=== PATIENT | female | born 1980 | race Caucasian/White ===

== ENCOUNTER 2021-10-23 17:19 | Inpatient (IN) | payer MEDICAID, OTHER ==
[~2021-10-23] VITALS: Ht 162.6 cm; Wt 106.4 kg
[2021-10-23] MEDS ORDERED: FLUO20SO2 PO (17:45)
[2021-10-23] MEDS ORDERED: BUSP10TA23 PO (17:45)
[2021-10-23] MEDS ORDERED: ARIP5TAB37 PO (17:45)
[2021-10-23] MEDS: INFLUENZA VIRUS VACCINE QVS 2021-22 (6MO+)/PF 60 MCG/0.5 ML SYRINGE IM. ONE (18:00)
[2021-10-23] MEDS ORDERED: LORazepam 2 MG TABLET PO PRN (18:15)
[2021-10-23] MEDS ORDERED: HALOPERIDOL 5 MG TABLET PO PRN (18:15)
[2021-10-23 18:21] LABS: GLUCOMETER DEV NAME(LOC) POC.BV
[2021-10-23 18:45] VITALS: BP 125/78
[2021-10-24 01:16] VITALS: BP 131/73
[2021-10-24 07:13] LABS: BASOPHILS % (AUTO) 0.7 % (0.0-2.0); EOSINOPHILS % (AUTO) 3.6 % (1.0-6.0); HEMOGLOBIN 13.1 g/dL (12.0-16.0); LYMPHOCYTES # (AUTO) 2.9 K/uL (1.0-4.8); LYMPHOCYTES % (AUTO) 40.6 % (22.0-44.0); MEAN CORPUSCULAR HEMOGLOBIN 27.4 pg (26.0-34.0); MEAN CORPUSCULAR HGB CONC 33.5 G/dL (31.0-37.0); MEAN CORPUSCULAR VOLUME 82 fL (80-100); MONOCYTES # (AUTO) 0.5 K/uL (0.1-1.0); NEUTROPHILS # (AUTO) 3.4 K/uL (1.8-7.7); NEUTROPHILS % (AUTO) 48.1 % (40.0-70.0); PLATELET COUNT (AUTO) 325 K/uL (150-450); RED BLOOD CELL COUNT(AUTO) 4.76 MIL/uL (4.00-5.20); RED CELL DISTRIBUTION WIDTH 13.6 % (11.5-14.5)
[2021-10-24 07:32] LABS: HEMOGLOBIN A1C 5.4 % (3.8-5.6)
[2021-10-24 07:35] LABS: ALANINE AMINOTRANSFERASE 61 U/L (12-78); ALBUMIN 3.5 g/dL (3.4-5.0); ALKALINE PHOSPHATASE 48 U/L (46-116); ANION GAP 7 mmol/L (8-16); ASPARTATE AMINOTRANSFERASE 32 U/L (15-37); BILIRUBIN,TOTAL 0.5 mg/dL (0.1-1.0); CALCIUM, TOTAL 8.5 mg/dL (8.8-10.5); CARBON DIOXIDE 28 mmol/L (22-29); CHLORIDE 104 mmol/L (98-107); CHOL/HDL RATIO 3.8 (3.9-5.7); CHOLESTEROL 134 mg/dL (131-200); CREATININE 0.73 mg/dL (0.60-1.30); FREE T4 (FREE THYROXINE) 0.98 ng/dL (0.76-1.46); GLOMERULAR FILTR. RATE CALC > 60 mL/min (>60); GLUCOSE,RANDOM 98 mg/dL (70-110); HCG,QUANTITATIVE < 1 mIU/mL (0-6); HDL CHOLESTEROL 35 mg/dL (40-60); LDL CHOL (CALC.) 85 mg/dL (0-130); POTASSIUM 3.7 mmol/L (3.5-5.1); SODIUM SERUM 139 mmol/L (136-145); THYROID STIMULATING HORMONE 0.49 uIU/mL (0.36-3.74); TOTAL PROTEIN, SERUM 7.5 g/dL (6.4-8.2); TRIGLYCERIDES 69 mg/dL (15-150); UREA NITROGEN, BLOOD 14 mg/dL (7-18)
[2021-10-24 08:16] VITALS: BP 137/74
[2021-10-24] MEDS ORDERED: FLUoxetine HCL 20 MG/5 ML SOLUTION UDCUP PO SCH (09:00)
[2021-10-24] MEDS: ARIPiprazole 5 MG TABLET PO SCH (09:34)
[2021-10-24] MEDS: BusPIRone HCL 10 MG TABLET PO SCH ×3 (09:34→16:23)
[2021-10-24] MEDS: FLUoxetine HCL 20 MG CAPSULE PO SCH (10:25)
[2021-10-24 16:42] VITALS: BP 119/76
[2021-10-24] MEDS: INFLUENZA VIRUS VACCINE QVS 2021-22 (6MO+)/PF 60 MCG/0.5 ML SYRINGE IM. ONE (17:58)
[2021-10-24] MEDS ORDERED: ALBUTEROL SULFATE HFA 90 MCG/PUFF 8 GM INHALER IH PRN (20:15)
[2021-10-24] MEDS ORDERED: BENZOCAINE/MENTHOL LOZENGE PO PRN (20:15)
[2021-10-24] MEDS ORDERED: PETROLATUM,WHITE 28 GM JELLY TP PRN (20:15)
[2021-10-24] MEDS ORDERED: ONDANSETRON HCL 4 MG TABLET PO PRN (20:15)
[2021-10-24] MEDS ORDERED: OMEPRAZOLE 20 MG CAPSULE PO PRN (20:15)
[2021-10-24] MEDS ORDERED: MAGNESIUM HYDROXIDE SUSPENSION 30 ML UDCUP PO PRN (20:15)
[2021-10-24] MEDS ORDERED: MAG HYDROX/AL HYDROX/SIMETH ES 30 ML SUSPENSION UDCUP PO PRN (20:15)
[2021-10-24] MEDS ORDERED: BACITRACIN 28 GM OINTMENT TP PRN (20:15)
[2021-10-24] MEDS ORDERED: DOCUSATE SODIUM 100 MG CAPSULE PO PRN (20:15)
[2021-10-24] MEDS ORDERED: LOPERAMIDE HCL 2 MG CAPSULE PO PRN (20:15)
[2021-10-24] MEDS ORDERED: ACETAMINOPHEN 325 MG TABLET PO PRN (20:15)
[2021-10-24] MEDS ORDERED: CloNIDine HCL 0.1 MG TABLET PO PRN (20:15)
[2021-10-24] MEDS: ZOLPIDEM TARTRATE 10 MG TABLET PO PRN (22:12)
[2021-10-24] MEDS: IBUPROFEN 600 MG TABLET PO PRN (22:12)
[2021-10-25 01:12] VITALS: BP 121/70
[2021-10-25] MEDS: ARIPiprazole 5 MG TABLET PO SCH (08:28)
[2021-10-25] MEDS: BusPIRone HCL 10 MG TABLET PO SCH ×3 (08:28→16:16)
[2021-10-25] MEDS: FLUoxetine HCL 20 MG CAPSULE PO SCH (08:28)
[2021-10-25 08:29] VITALS: BP 124/81
[2021-10-25 16:22] VITALS: BP 124/83
[2021-10-25 21:10] VITALS: BP 131/70
[2021-10-25 21:57] VITALS: BP 140/77
[2021-10-25] MEDS: IBUPROFEN 600 MG TABLET PO PRN (21:57)
[2021-10-25] MEDS: ZOLPIDEM TARTRATE 10 MG TABLET PO PRN (21:57)
[2021-10-26 00:41] VITALS: BP 140/77
[2021-10-26 07:01] LABS: APPEARANCE,URINE CLEAR (CLEAR); BILIRUBIN,URINE NEGATIVE (NEGATIVE); GLUCOSE, URINE (UA) NEGATIVE (NEGATIVE); KETONES,URINE NEGATIVE (NEGATIVE); LEUKOCYTE ESTERASE ,URINE NEGATIVE (NEGATIVE); NITRATE,URINE NEGATIVE (NEGATIVE); PROTEIN,URINE NEGATIVE (NEGATIVE); SPECIFIC GRAVITIY, URINE 1.011 (1.003-1.030); UROBILINOGEN,URINE <=1.0 mg/dL (<=1.0)
[2021-10-26 07:09] LABS: AMPHET/METH SCREEN,URINE NEGATIVE (NEGATIVE); BARBITURATE SCREEN, URINE NEGATIVE (NEGATIVE); BENZODIAZEPINES SCREEN,URINE NEGATIVE (NEGATIVE); CANNABINOID SCREEN,URINE NEGATIVE (NEGATIVE); COCAINE SCREEN,URINE NEGATIVE (NEGATIVE); METHADONE SCREEN, URINE NEGATIVE (NEGATIVE); OPIATE SCREEN,URINE NEGATIVE (NEGATIVE)
[2021-10-26 07:16] LABS: OCCULT BLOOD,URINE SMALL (NEGATIVE)
[2021-10-26 07:17] LABS: BACTERIA,URINE Few /HPF (None Seen); SQUAMOUS EPITHELIAL CELL,UR Few /LPF (None Seen); WBC,URINE None Seen /HPF (0-5)
[2021-10-26 07:18] LABS: PHENCYCLIDINE SCREEN,URINE NEGATIVE (NEGATIVE)
[2021-10-26 08:28] VITALS: BP 123/72
[2021-10-26] MEDS: BusPIRone HCL 10 MG TABLET PO SCH ×2 (08:32→12:14)
[2021-10-26] MEDS: ARIPiprazole 5 MG TABLET PO SCH (08:32)
[2021-10-26] MEDS: FLUoxetine HCL 20 MG CAPSULE PO SCH (08:33)
[2021-10-26] MEDS ORDERED: ARIP5TAB37 PO (15:12)
[2021-10-26] MEDS ORDERED: BUSP10TA23 PO (15:12)
== END 2021-10-26 16:15 | disposition home or self-care (01) | DRG 750 ==
LOC: B2S 18:13
PROVIDERS: ADMIT Psychiatry & Neurology Psychiatry; ATTEND Psychiatry & Neurology Psychiatry
DX: F25.0 Schizoaffective disorder, bipolar type (principal); E66.9 Obesity, unspecified; F41.9 Anxiety disorder, unspecified; G47.00 Insomnia, unspecified; Z20.822 Contact with and (suspected) exposure to COVID-19; K59.00 Constipation, unspecified; Z72.89 Other problems related to lifestyle; Z68.41 Body mass index [BMI] 40.0-44.9, adult
CPT/HCPCS: 80053; 80061; 80307; 81001; 83036; 84439; 84443; 84702; 85025; 87081; 90686

== ENCOUNTER 2021-12-21 15:24 | Emergency (ER) | payer MEDICAID, OTHER ==
[~2021-12-21] VITALS: Ht 162.6 cm; Wt 109.1 kg
[~2021-12-21 15:24] MED LIST: ARIP5TAB37 PO; BUSP10TA23 PO
[2021-12-21] MEDS ORDERED: SODIUM CHLORIDE 0.9% 1,000 ML IV ONE (16:00)
[2021-12-21 16:20] LABS: BASOPHILS % (AUTO) 0.7 % (0.0-2.0); EOSINOPHILS % (AUTO) 3.3 % (1.0-6.0); HEMATOCRIT 39.8 % (36-46); HEMOGLOBIN 13.5 g/dL (12.0-16.0); LYMPHOCYTES # (AUTO) 2.6 K/uL (1.0-4.8); LYMPHOCYTES % (AUTO) 20.6 % (22.0-44.0); MEAN CORPUSCULAR HEMOGLOBIN 27.9 pg (26.0-34.0); MEAN CORPUSCULAR VOLUME 82 fL (80-100); MONOCYTES # (AUTO) 0.6 K/uL (0.1-1.0); NEUTROPHILS # (AUTO) 8.8 K/uL (1.8-7.7); NEUTROPHILS % (AUTO) 70.4 % (40.0-70.0); PLATELET COUNT (AUTO) 332 K/uL (150-450); RED BLOOD CELL COUNT(AUTO) 4.85 MIL/uL (4.00-5.20); RED CELL DISTRIBUTION WIDTH 13.8 % (11.5-14.5)
[2021-12-21 16:24] LABS: COVID AG,FIA SOURCE NASAL SWAB
[2021-12-21 16:28] LABS: ANION GAP 10 mmol/L (8-16); CALCIUM, TOTAL 8.7 mg/dL (8.8-10.5); CARBON DIOXIDE 27 mmol/L (22-29); CHLORIDE 104 mmol/L (98-107); GLOMERULAR FILTR. RATE CALC > 60 mL/min (>60); GLUCOSE,RANDOM 98 mg/dL (70-110); POTASSIUM 4.3 mmol/L (3.5-5.1); SODIUM SERUM 141 mmol/L (136-145); UREA NITROGEN, BLOOD 17 mg/dL (7-18)
[2021-12-21 16:39] LABS: ALANINE AMINOTRANSFERASE 60 U/L (12-78); ALBUMIN 3.6 g/dL (3.4-5.0); ALKALINE PHOSPHATASE 52 U/L (46-116); ASPARTATE AMINOTRANSFERASE 44 U/L (15-37); BILIRUBIN,TOTAL 0.4 mg/dL (0.1-1.0); HCG,QUANTITATIVE < 1 mIU/mL (0-6); SALICYLATE 2.3 mg/dL (2.8-20.0); TOTAL PROTEIN, SERUM 7.4 g/dL (6.4-8.2)
[2021-12-21 16:40] LABS: ACETAMINOPHEN < 2 mcg/mL (10-30)
[2021-12-21 17:29] VITALS: BP 139/96
[2021-12-21 17:59] LABS: AMPHET/METH SCREEN,URINE NEGATIVE (NEGATIVE); BARBITURATE SCREEN, URINE NEGATIVE (NEGATIVE); BENZODIAZEPINES SCREEN,URINE NEGATIVE (NEGATIVE); CANNABINOID SCREEN,URINE NEGATIVE (NEGATIVE); COCAINE SCREEN,URINE NEGATIVE (NEGATIVE); METHADONE SCREEN, URINE NEGATIVE (NEGATIVE); OPIATE SCREEN,URINE NEGATIVE (NEGATIVE)
[2021-12-21 18:04] LABS: PHENCYCLIDINE SCREEN,URINE NEGATIVE (NEGATIVE)
== END 2021-12-21 19:03 | disposition left against medical advice (07) ==
LOC: EMS 15:24
DX: T43.592A Poisoning by other antipsychotics and neuroleptics, intentional self-harm, initial encounter (principal); R45.851 Suicidal ideations; F32.A Depression, unspecified; F20.9 Schizophrenia, unspecified; F17.210 Nicotine dependence, cigarettes, uncomplicated; Z98.890 Other specified postprocedural states; Z20.822 Contact with and (suspected) exposure to COVID-19; Y92.89 Other specified places as the place of occurrence of the external cause
CPT/HCPCS: 36415; 80053; 80307; 83735; 84702; 85025; 87426; 93005; 96360; 99284; G0480; J7030; G0481

== ENCOUNTER 2022-01-21 08:50 | Emergency (ER) | payer OTHER ==
[~2022-01-21] VITALS: Ht 162.6 cm; Wt 104.5 kg
[2022-01-21] MEDS ORDERED: FLUO10CA24 PO (09:03)
[2022-01-21 16:33] VITALS: BP 118/74
== END 2022-01-21 16:35 | disposition home or self-care (01) ==
LOC: EMS 08:55
DX: T76.21XA Adult sexual abuse, suspected, initial encounter (principal); F41.9 Anxiety disorder, unspecified; F32.A Depression, unspecified; F20.9 Schizophrenia, unspecified; F17.210 Nicotine dependence, cigarettes, uncomplicated; F15.90 Other stimulant use, unspecified, uncomplicated; Z86.59 Personal history of other mental and behavioral disorders; Z98.890 Other specified postprocedural states
CPT/HCPCS: 99281; Z7502

== ENCOUNTER 2022-07-03 17:31 | Inpatient (IN) | payer MEDICAID ==
[~2022-07-03] VITALS: Ht 160 cm; Wt 115.2 kg
[~2022-07-03 17:31] MED LIST changes: +FLUO10CA24 PO
[2022-07-03 19:15] VITALS: BP 129/67
[2022-07-03 19:21] LABS: GLUCOMETER DEV NAME(LOC) POC.BV
[2022-07-03] MEDS ORDERED: HALOPERIDOL 5 MG TABLET PO PRN (19:30)
[2022-07-03] MEDS ORDERED: ZOLPIDEM TARTRATE 10 MG TABLET PO PRN (19:30)
[2022-07-03 20:25] VITALS: BP 130/85
[2022-07-03 21:00] VITALS: BP 130/85
[2022-07-03] MEDS ORDERED: ACETAMINOPHEN 325 MG TABLET PO PRN (21:00)
[2022-07-03] MEDS ORDERED: INFLUENZA VIRUS VACCINE QVS 2022-23 (6MO+)/PF 60 MCG/0.5 ML SYRINGE IM. ONE (21:45)
[2022-07-04] MEDS ORDERED: FLUO20SO2 PO
[2022-07-04] MEDS ORDERED: BUSP15 PO
[2022-07-04] MEDS ORDERED: ZIPR20CA38 PO
[2022-07-04 07:00] LABS: BASOPHILS % (AUTO) 0.7 % (0.0-2.0); EOSINOPHILS % (AUTO) 5.8 % (1.0-6.0); HEMATOCRIT 36.9 % (36-46); HEMOGLOBIN 12.8 g/dL (12.0-16.0); LYMPHOCYTES # (AUTO) 2.6 K/uL (1.0-4.8); LYMPHOCYTES % (AUTO) 37.5 % (22.0-44.0); MEAN CORPUSCULAR HGB CONC 34.6 G/dL (31.0-37.0); MEAN CORPUSCULAR VOLUME 81 fL (80-100); MONOCYTES # (AUTO) 0.4 K/uL (0.1-1.0); MONOCYTES % (AUTO) 5.7 % (2.0-9.0); NEUTROPHILS # (AUTO) 3.5 K/uL (1.8-7.7); NEUTROPHILS % (AUTO) 50.3 % (40.0-70.0); PLATELET COUNT (AUTO) 258 K/uL (150-450); RED BLOOD CELL COUNT(AUTO) 4.57 MIL/uL (4.00-5.20); RED CELL DISTRIBUTION WIDTH 13.8 % (11.5-14.5)
[2022-07-04] MEDS ORDERED: IBUPROFEN 400 MG TABLET PO PRN (07:00)
[2022-07-04] MEDS ORDERED: ONDANSETRON HCL 4 MG TABLET PO PRN (07:00)
[2022-07-04] MEDS ORDERED: ACETAMINOPHEN 325 MG TABLET PO PRN (07:00)
[2022-07-04] MEDS ORDERED: ALBUTEROL SULFATE HFA 90 MCG/PUFF 8 GM INHALER IH PRN (07:00)
[2022-07-04] MEDS ORDERED: LOPERAMIDE HCL 2 MG CAPSULE PO PRN (07:00)
[2022-07-04] MEDS ORDERED: MAG HYDROX/AL HYDROX/SIMETH ES 30 ML SUSPENSION UDCUP PO PRN (07:00)
[2022-07-04] MEDS ORDERED: PETROLATUM,WHITE 28 GM JELLY TP PRN (07:00)
[2022-07-04] MEDS ORDERED: DOCUSATE SODIUM 100 MG CAPSULE PO PRN (07:00)
[2022-07-04] MEDS ORDERED: CloNIDine HCL 0.1 MG TABLET PO PRN (07:00)
[2022-07-04] MEDS ORDERED: NICOTINE 14 MG/24 HOUR PATCH TD PRN (07:00)
[2022-07-04] MEDS ORDERED: MAGNESIUM HYDROXIDE SUSPENSION 30 ML UDCUP PO PRN (07:00)
[2022-07-04] MEDS ORDERED: GuaiFENesin/D-METHORPHAN [SUGAR-FREE] 200-20MG/10 ML SYRUP UDCUP PO PRN (07:00)
[2022-07-04 07:35] LABS: ALANINE AMINOTRANSFERASE 52 U/L (12-78); ALBUMIN 3.3 g/dL (3.4-5.0); ALKALINE PHOSPHATASE 52 U/L (46-116); ANION GAP 5 mmol/L (8-16); ASPARTATE AMINOTRANSFERASE 36 U/L (15-37); BILIRUBIN,TOTAL 0.4 mg/dL (0.1-1.0); CALCIUM, TOTAL 8.8 mg/dL (8.8-10.5); CARBON DIOXIDE 29 mmol/L (22-29); CHLORIDE 103 mmol/L (98-107); CHOLESTEROL 127 mg/dL (131-200); CREATININE 0.99 mg/dL (0.60-1.30); FREE T4 (FREE THYROXINE) 0.89 ng/dL (0.76-1.46); GLUCOSE,RANDOM 129 mg/dL (70-110); HCG,QUANTITATIVE < 1 mIU/mL (0-6); HDL CHOLESTEROL 32 mg/dL (40-60); LDL CHOL (CALC.) 66 mg/dL (0-130); POTASSIUM 3.8 mmol/L (3.5-5.1); SODIUM SERUM 137 mmol/L (136-145); THYROID STIMULATING HORMONE 0.42 uIU/mL (0.36-3.74); TOTAL PROTEIN, SERUM 6.9 g/dL (6.4-8.2); TRIGLYCERIDES 147 mg/dL (15-150); UREA NITROGEN, BLOOD 13 mg/dL (7-18)
[2022-07-04 07:36] LABS: GLOMERULAR FILTR. RATE CALC > 60 mL/min (>60)
[2022-07-04 08:00] VITALS: BP 134/86
[2022-07-04] MEDS: LORazepam 2 MG TABLET PO PRN (09:31)
[2022-07-04] MEDS ORDERED: FLUO20CA36 PO (12:17)
[2022-07-04] MEDS: FLUoxetine HCL 20 MG CAPSULE PO SCH (13:06)
[2022-07-04] MEDS: BusPIRone HCL 15 MG TABLET PO SCH (16:11)
[2022-07-04] MEDS: OLANZapine 7.5 MG TABLET PO SCH (20:22)
[2022-07-04 20:52] VITALS: BP 107/61
[2022-07-05 08:42] VITALS: BP 122/81
[2022-07-05] MEDS: FLUoxetine HCL 20 MG CAPSULE PO SCH (09:36)
[2022-07-05] MEDS: BusPIRone HCL 15 MG TABLET PO SCH ×2 (09:36→16:23)
[2022-07-05] MEDS: LORazepam 2 MG TABLET PO PRN (09:37)
[2022-07-05] MEDS: OLANZapine 7.5 MG TABLET PO SCH (20:09)
[2022-07-05 20:23] VITALS: BP 106/62
[2022-07-06 08:00] VITALS: BP 116/63
[2022-07-06] MEDS: FLUoxetine HCL 20 MG CAPSULE PO SCH (08:55)
[2022-07-06] MEDS: BusPIRone HCL 15 MG TABLET PO SCH ×2 (08:55→16:04)
[2022-07-06 10:26] VITALS: BP 116/63
[2022-07-06 20:21] VITALS: BP 118/64
[2022-07-06] MEDS: OLANZapine 7.5 MG TABLET PO SCH (20:52)
[2022-07-07 08:24] VITALS: BP 125/78
[2022-07-07] MEDS: FLUoxetine HCL 20 MG CAPSULE PO SCH (08:41)
[2022-07-07] MEDS: BusPIRone HCL 15 MG TABLET PO SCH ×2 (08:41→16:37)
[2022-07-07] MEDS: OLANZapine 7.5 MG TABLET PO SCH (20:38)
[2022-07-08 02:20] VITALS: BP 119/72
[2022-07-08] MEDS: FLUoxetine HCL 20 MG CAPSULE PO SCH (09:59)
[2022-07-08] MEDS: BusPIRone HCL 15 MG TABLET PO SCH ×2 (09:59→16:08)
[2022-07-08] MEDS: OLANZapine 7.5 MG TABLET PO SCH (20:15)
[2022-07-08 20:38] VITALS: BP 129/78
[2022-07-09 07:17] LABS: GLUCOMETER DEV NAME(LOC) POC.BV
[2022-07-09] MEDS: FLUoxetine HCL 20 MG CAPSULE PO SCH (08:23)
[2022-07-09] MEDS: BusPIRone HCL 15 MG TABLET PO SCH (08:23)
[2022-07-09 08:25] VITALS: BP 120/79
[2022-07-09] MEDS ORDERED: OLAN7.5T22 PO ×2 (14:00→15:12)
[2022-07-09] MEDS ORDERED: FLUO20CA36 PO (15:12)
[2022-07-09] MEDS ORDERED: BUSP15 PO (15:12)
== END 2022-07-09 14:55 | disposition home or self-care (01) | DRG 750 ==
LOC: B3A 20:14
PROVIDERS: ADMIT Psychiatry & Neurology Psychiatry; ATTEND Psychiatry & Neurology Psychiatry
DX: F25.0 Schizoaffective disorder, bipolar type (principal); F33.2 Major depressive disorder, recurrent severe without psychotic features; R45.851 Suicidal ideations; E66.9 Obesity, unspecified; F41.9 Anxiety disorder, unspecified; K59.00 Constipation, unspecified; Z20.822 Contact with and (suspected) exposure to COVID-19; G47.00 Insomnia, unspecified; Z79.899 Other long term (current) drug therapy; Z59.00 Homelessness unspecified; Z68.42 Body mass index [BMI] 45.0-49.9, adult
CPT/HCPCS: 80053; 80061; 84439; 84443; 84702; 85025; 90686

== ENCOUNTER 2022-09-18 19:07 | Inpatient (IN) | payer MEDICAID ==
[~2022-09-18] VITALS: Ht 162.6 cm; Wt 112.9 kg
[~2022-09-18 19:07] MED LIST changes: -ARIP5TAB37 PO; -BUSP10TA23 PO; +BUSP15 PO; -FLUO10CA24 PO; +FLUO20CA36 PO; +OLAN7.5T22 PO
[2022-09-18 22:45] VITALS: BP 115/64
[2022-09-18 23:00] VITALS: BP 119/72
[2022-09-18] MEDS ORDERED: ZOLPIDEM TARTRATE 10 MG TABLET PO PRN (23:00)
[2022-09-18] MEDS ORDERED: LORazepam 2 MG TABLET PO PRN (23:00)
[2022-09-18] MEDS ORDERED: HALOPERIDOL 5 MG TABLET PO PRN (23:00)
[2022-09-18] MEDS ORDERED: PNEUMOCOCCAL VACCINE POLYVALENT 0.5 ML VIAL [PPSV23] IM. ONE (23:45)
[2022-09-19 07:43] LABS: BASOPHILS % (AUTO) 0.9 % (0.0-2.0); EOSINOPHILS % (AUTO) 2.9 % (1.0-6.0); HEMATOCRIT 39.9 % (36-46); HEMOGLOBIN 13.4 g/dL (12.0-16.0); LYMPHOCYTES # (AUTO) 2.5 K/uL (1.0-4.8); LYMPHOCYTES % (AUTO) 29.2 % (22.0-44.0); MEAN CORPUSCULAR HEMOGLOBIN 27.4 pg (26.0-34.0); MEAN CORPUSCULAR HGB CONC 33.7 G/dL (31.0-37.0); MEAN CORPUSCULAR VOLUME 81 fL (80-100); MONOCYTES # (AUTO) 0.5 K/uL (0.1-1.0); MONOCYTES % (AUTO) 5.4 % (2.0-9.0); NEUTROPHILS # (AUTO) 5.3 K/uL (1.8-7.7); NEUTROPHILS % (AUTO) 61.6 % (40.0-70.0); PLATELET COUNT (AUTO) 275 K/uL (150-450); RED BLOOD CELL COUNT(AUTO) 4.91 MIL/uL (4.00-5.20); RED CELL DISTRIBUTION WIDTH 14.3 % (11.5-14.5)
[2022-09-19 08:42] LABS: ALANINE AMINOTRANSFERASE 40 U/L (12-78); ALBUMIN 3.4 g/dL (3.4-5.0); ALKALINE PHOSPHATASE 50 U/L (46-116); ANION GAP 9 mmol/L (8-16); ASPARTATE AMINOTRANSFERASE 29 U/L (15-37); BILIRUBIN,TOTAL 0.4 mg/dL (0.1-1.0); CALCIUM, TOTAL 8.7 mg/dL (8.8-10.5); CARBON DIOXIDE 25 mmol/L (22-29); CHLORIDE 107 mmol/L (98-107); CHOL/HDL RATIO 3.4 (3.9-5.7); CHOLESTEROL 121 mg/dL (131-200); CREATININE 0.92 mg/dL (0.60-1.30); FREE T4 (FREE THYROXINE) 1.07 ng/dL (0.76-1.46); GLOMERULAR FILTR. RATE CALC > 60 mL/min (>60); GLUCOSE,RANDOM 103 mg/dL (70-110); HCG,QUANTITATIVE < 1 mIU/mL (0-6); HDL CHOLESTEROL 36 mg/dL (40-60); LDL CHOL (CALC.) 72 mg/dL (0-130); POTASSIUM 4.1 mmol/L (3.5-5.1); SODIUM SERUM 141 mmol/L (136-145); THYROID STIMULATING HORMONE 0.41 uIU/mL (0.36-3.74); TOTAL PROTEIN, SERUM 7.3 g/dL (6.4-8.2); TRIGLYCERIDES 66 mg/dL (15-150); UREA NITROGEN, BLOOD 14 mg/dL (7-18)
[2022-09-19] MEDS ORDERED: MAGNESIUM HYDROXIDE SUSPENSION 30 ML UDCUP PO PRN (11:15)
[2022-09-19] MEDS ORDERED: ACETAMINOPHEN 325 MG TABLET PO PRN (11:15)
[2022-09-19] MEDS ORDERED: ALBUTEROL SULFATE HFA 90 MCG/PUFF 8 GM INHALER IH PRN (11:15)
[2022-09-19] MEDS ORDERED: NICOTINE 14 MG/24 HOUR PATCH TD PRN (11:15)
[2022-09-19] MEDS ORDERED: PETROLATUM,WHITE 28 GM JELLY TP PRN (11:15)
[2022-09-19] MEDS ORDERED: MAG HYDROX/AL HYDROX/SIMETH ES 30 ML SUSPENSION UDCUP PO PRN (11:15)
[2022-09-19] MEDS ORDERED: CloNIDine HCL 0.1 MG TABLET PO PRN (11:15)
[2022-09-19] MEDS ORDERED: GuaiFENesin/D-METHORPHAN [SUGAR-FREE] 200-20MG/10 ML SYRUP UDCUP PO PRN (11:15)
[2022-09-19] MEDS ORDERED: LOPERAMIDE HCL 2 MG CAPSULE PO PRN (11:15)
[2022-09-19] MEDS ORDERED: DOCUSATE SODIUM 100 MG CAPSULE PO PRN (11:15)
[2022-09-19] MEDS ORDERED: IBUPROFEN 400 MG TABLET PO PRN (11:15)
[2022-09-19] MEDS ORDERED: ONDANSETRON HCL 4 MG TABLET PO PRN (11:15)
[2022-09-19] MEDS ORDERED: OLAN10TA74 PO (11:18)
[2022-09-19 12:02] VITALS: BP 117/69
[2022-09-19] MEDS: SERTRALINE HCL 50 MG TABLET PO SCH (13:46)
[2022-09-19] MEDS: BusPIRone HCL 15 MG TABLET PO SCH ×2 (13:46→20:19)
[2022-09-19] MEDS: OLANZapine 10 MG TABLET PO SCH ×2 (13:46→20:19)
[2022-09-19 20:03] VITALS: BP 114/77
[2022-09-20 08:06] LABS: HEPATITIS C AB (EIA) Non Reactive (Non Reactive)
[2022-09-20] MEDS: SERTRALINE HCL 50 MG TABLET PO SCH (08:57)
[2022-09-20] MEDS: BusPIRone HCL 15 MG TABLET PO SCH ×2 (08:57→20:13)
[2022-09-20] MEDS: OLANZapine 10 MG TABLET PO SCH ×2 (08:57→20:13)
[2022-09-20 23:57] VITALS: BP 129/65
[2022-09-21] MEDS: BusPIRone HCL 15 MG TABLET PO SCH ×2 (08:15→20:35)
[2022-09-21] MEDS: SERTRALINE HCL 50 MG TABLET PO SCH (08:15)
[2022-09-21] MEDS: OLANZapine 10 MG TABLET PO SCH ×2 (08:15→20:35)
[2022-09-21 08:38] VITALS: BP 142/90
[2022-09-21 20:55] VITALS: BP 102/60
[2022-09-22] MEDS: BusPIRone HCL 15 MG TABLET PO SCH (08:10)
[2022-09-22] MEDS: SERTRALINE HCL 50 MG TABLET PO SCH (08:10)
[2022-09-22] MEDS: OLANZapine 10 MG TABLET PO SCH (08:10)
[2022-09-22 08:22] VITALS: BP 110/61
[2022-09-22] MEDS ORDERED: SERT-439 PO (09:25)
[2022-09-22] MEDS ORDERED: BUSP15 PO (09:25)
[2022-09-22] MEDS ORDERED: OLAN10 PO (09:25)
== END 2022-09-22 12:34 | disposition home or self-care (01) | DRG 750 ==
LOC: B3A 22:49
PROVIDERS: ADMIT Psychiatry & Neurology Psychiatry; ATTEND Psychiatry & Neurology Psychiatry
DX: F25.1 Schizoaffective disorder, depressive type (principal); R45.851 Suicidal ideations; F41.9 Anxiety disorder, unspecified; G47.00 Insomnia, unspecified; E78.5 Hyperlipidemia, unspecified; E66.01 Morbid (severe) obesity due to excess calories; Z79.899 Other long term (current) drug therapy; Z91.51 Personal history of suicidal behavior; Z59.00 Homelessness unspecified; Z68.42 Body mass index [BMI] 45.0-49.9, adult
CPT/HCPCS: 80053; 80061; 84439; 84443; 84702; 85025; 86709; 86803

== ENCOUNTER 2023-05-10 14:45 | Inpatient (IN) | payer MEDICAID ==
[~2023-05-10] VITALS: Ht 162.6 cm; Wt 115.7 kg
[~2023-05-10 14:45] MED LIST changes: -FLUO20CA36 PO; +OLAN10 PO; -OLAN7.5T22 PO; +SERT-439 PO
[2023-05-10] MEDS ORDERED: OLAN5TAB52 PO (15:54)
[2023-05-10] MEDS ORDERED: BUSP15 PO (15:54)
[2023-05-10] MEDS ORDERED: OLAN10TA74 PO (15:54)
[2023-05-10] MEDS ORDERED: ESCI-8 PO (15:54)
[2023-05-10 15:56] VITALS: BP 134/88; PULSE 98; RESP 18; TEMP 98.2
[2023-05-10] MEDS ORDERED: INFLUENZA VIRUS VACCINE QVS 2023-24 (6MO+)/PF 60 MCG/0.5 ML SYRINGE IM. ONE (17:15)
[2023-05-10] MEDS ORDERED: PNEUMOCOCCAL VACCINE POLYVALENT 0.5 ML SYRINGE [PPSV23] IM. ONE (17:15)
[2023-05-10] MEDS ORDERED: HALOPERIDOL 5 MG TABLET PO PRN (17:15)
[2023-05-10 18:22] LABS: GLUCOMETER DEV NAME(LOC) POC.BV; POC SARS-COV2 AG, FIA NEGATIVE (NEGATIVE)
[2023-05-10 18:35] VITALS: BP 124/75; PULSE 88; RESP 18; TEMP 97.9; O2SAT 100
[2023-05-10 22:30] VITALS: BP 113/71; PULSE 81; RESP 18; TEMP 97.5; O2SAT 98
[2023-05-11 08:20] LABS: BASOPHILS % (AUTO) 1.2 % (0.0-2.0); EOSINOPHILS % (AUTO) 3.5 % (1.0-6.0); HEMATOCRIT 40.5 % (36-46); HEMOGLOBIN 13.4 g/dL (12.0-16.0); LYMPHOCYTES # (AUTO) 2.4 K/uL (1.0-4.8); LYMPHOCYTES % (AUTO) 36.9 % (22.0-44.0); MEAN CORPUSCULAR HEMOGLOBIN 27.4 pg (26.0-34.0); MEAN CORPUSCULAR HGB CONC 33.1 G/dL (31.0-37.0); MEAN CORPUSCULAR VOLUME 83 fL (80-100); MONOCYTES # (AUTO) 0.4 K/uL (0.1-1.0); MONOCYTES % (AUTO) 6.5 % (2.0-9.0); NEUTROPHILS # (AUTO) 3.4 K/uL (1.8-7.7); NEUTROPHILS % (AUTO) 51.9 % (40.0-70.0); PLATELET COUNT (AUTO) 328 K/uL (150-450); RED CELL DISTRIBUTION WIDTH 14.7 % (11.5-14.5); WHITE BLOOD COUNT (AUTO) 6.6 K/uL (4.5-11.0)
[2023-05-11 08:29] LABS: APPEARANCE,URINE TURBID (CLEAR); BILIRUBIN,URINE NEGATIVE (NEGATIVE); COLOR,URINE LIGHT ORANGE (YELLOW); GLUCOSE, URINE (UA) NEGATIVE (NEGATIVE); KETONES,URINE NEGATIVE (NEGATIVE); LEUKOCYTE ESTERASE ,URINE SMALL (NEGATIVE); NITRATE,URINE POSITIVE (NEGATIVE); OCCULT BLOOD,URINE SMALL (NEGATIVE); PH,URINE 5.5 (5.0-8.0); PH,URINE DRUG SCREEN 5.5 (5.0-8.0); PROTEIN,URINE TRACE mg/dL (NEGATIVE); UROBILINOGEN,URINE <=1.0 mg/dL (<=1.0)
[2023-05-11 08:36] LABS: ALCOHOL, URINE DRUG SCREEN NEGATIVE (NEGATIVE); AMPHET/METH SCREEN,URINE NEGATIVE (NEGATIVE); BARBITURATE SCREEN, URINE NEGATIVE (NEGATIVE); BENZODIAZEPINES SCREEN,URINE NEGATIVE (NEGATIVE); CANNABINOID SCREEN,URINE NEGATIVE (NEGATIVE); COCAINE SCREEN,URINE NEGATIVE (NEGATIVE); METHADONE SCREEN, URINE NEGATIVE (NEGATIVE); OPIATE SCREEN,URINE NEGATIVE (NEGATIVE); PHENCYCLIDINE SCREEN,URINE NEGATIVE (NEGATIVE)
[2023-05-11 08:43] LABS: ALANINE AMINOTRANSFERASE 41 U/L (12-78); ALBUMIN 3.2 g/dL (3.4-5.0); ALKALINE PHOSPHATASE 57 U/L (46-116); ANION GAP 10 mmol/L (8-16); ASPARTATE AMINOTRANSFERASE 25 U/L (15-37); BILIRUBIN,TOTAL 0.4 mg/dL (0.1-1.0); CALCIUM, TOTAL 8.6 mg/dL (8.8-10.5); CARBON DIOXIDE 27 mmol/L (22-29); CHLORIDE 104 mmol/L (98-107); CREATININE 0.84 mg/dL (0.60-1.30); FREE T4 (FREE THYROXINE) 0.91 ng/dL (0.76-1.46); GLOMERULAR FILTR. RATE CALC > 60 mL/min (>60); GLUCOSE,RANDOM 90 mg/dL (70-110); HCG,QUANTITATIVE < 1 mIU/mL (0-6); POTASSIUM 3.9 mmol/L (3.5-5.1); SODIUM SERUM 141 mmol/L (136-145); THYROID STIMULATING HORMONE 0.42 uIU/mL (0.36-3.74); TOTAL PROTEIN, SERUM 7.4 g/dL (6.4-8.2); UREA NITROGEN, BLOOD 12 mg/dL (7-18)
[2023-05-11 08:58] LABS: AMORPHOUS SEDIMENT,UR Moderate /LPF (None Seen); BACTERIA,URINE Moderate /HPF (None Seen); RBC,URINE None Seen /HPF (0-2); SQUAMOUS EPITHELIAL CELL,UR Few /LPF (None Seen); WBC,URINE 0-2 /HPF (0-5)
[2023-05-11] MEDS: NYSTATIN 30 GM CREAM TP SCH ×2 (09:00→17:01)
[2023-05-11] MEDS: CEPHALEXIN MONOHYDRATE 500 MG CAPSULE PO SCH ×2 (12:43→17:01)
[2023-05-11] MEDS ORDERED: ONDANSETRON HCL 4 MG TABLET PO PRN (13:45)
[2023-05-11] MEDS ORDERED: CloNIDine HCL 0.1 MG TABLET PO PRN (13:45)
[2023-05-11] MEDS ORDERED: MAG HYDROX/ALUMINUM HYD/SIMETH ES 30 ML SUSPENSION UDCUP PO PRN (13:45)
[2023-05-11] MEDS ORDERED: MAGNESIUM HYDROXIDE SUSPENSION 30 ML UDCUP PO PRN (13:45)
[2023-05-11] MEDS ORDERED: GuaiFENesin/D-METHORPHAN [SUGAR-FREE] 200-20MG/10 ML SYRUP UDCUP PO PRN (13:45)
[2023-05-11] MEDS ORDERED: NICOTINE 14 MG/24 HOUR PATCH TD PRN (13:45)
[2023-05-11] MEDS ORDERED: ALBUTEROL SULFATE HFA 90 MCG/PUFF 8 GM INHALER IH PRN (13:45)
[2023-05-11] MEDS ORDERED: LOPERAMIDE HCL 2 MG CAPSULE PO PRN (13:45)
[2023-05-11] MEDS ORDERED: IBUPROFEN 400 MG TABLET PO PRN (13:45)
[2023-05-11] MEDS ORDERED: DOCUSATE SODIUM 100 MG CAPSULE PO PRN (13:45)
[2023-05-11] MEDS ORDERED: PETROLATUM,WHITE 28 GM JELLY TP PRN (13:45)
[2023-05-11 13:54] VITALS: BP 119/63; PULSE 75; RESP 17; TEMP 97.3; O2SAT 97
[2023-05-11] MEDS: BusPIRone HCL 15 MG TABLET PO SCH (20:43)
[2023-05-11] MEDS: OLANZapine 10 MG TABLET PO SCH (20:43)
[2023-05-11] MEDS: LamoTRIgine 25 MG TABLET PO SCH (20:44)
[2023-05-11 22:40] VITALS: BP 110/75; PULSE 85; RESP 16; TEMP 97.5
[2023-05-12 03:06] LABS: HEPATITIS C AB (EIA) Non Reactive (Non Reactive)
[2023-05-12 07:48] LABS: HEMOGLOBIN A1C 5.8 % (3.8-5.6)
[2023-05-12 08:06] LABS: CHOL/HDL RATIO 4.3 (3.9-5.7); THYROID STIMULATING HORMONE 0.63 uIU/mL (0.36-3.74)
[2023-05-12] MEDS: BusPIRone HCL 15 MG TABLET PO SCH ×2 (08:57→21:44)
[2023-05-12] MEDS: NYSTATIN 30 GM CREAM TP SCH ×2 (08:57→16:19)
[2023-05-12] MEDS: LamoTRIgine 25 MG TABLET PO SCH ×2 (08:57→21:44)
[2023-05-12] MEDS: ESCITALOPRAM OXALATE 10 MG TABLET PO SCH (08:57)
[2023-05-12] MEDS: CEPHALEXIN MONOHYDRATE 500 MG CAPSULE PO SCH ×3 (08:57→16:19)
[2023-05-12 13:42] VITALS: BP 120/72; PULSE 86; RESP 18; TEMP 97.3; O2SAT 98
[2023-05-12 20:00] VITALS: BP 136/66; PULSE 83; RESP 18; TEMP 97.7
[2023-05-12] MEDS: ZOLPIDEM TARTRATE 10 MG TABLET PO PRN (21:44)
[2023-05-12] MEDS: OLANZapine 10 MG TABLET PO SCH (21:44)
[2023-05-13] MEDS: ESCITALOPRAM OXALATE 10 MG TABLET PO SCH (09:45)
[2023-05-13] MEDS: BusPIRone HCL 15 MG TABLET PO SCH ×2 (09:45→20:25)
[2023-05-13] MEDS: NYSTATIN 30 GM CREAM TP SCH ×2 (09:46→17:00)
[2023-05-13] MEDS: LamoTRIgine 25 MG TABLET PO SCH ×2 (09:46→20:25)
[2023-05-13] MEDS: CEPHALEXIN MONOHYDRATE 500 MG CAPSULE PO SCH ×3 (09:48→17:00)
[2023-05-13 10:13] VITALS: BP 122/79; PULSE 88; RESP 18; TEMP 98.6; O2SAT 97
[2023-05-13] MEDS: LORazepam 2 MG TABLET PO PRN (19:41)
[2023-05-13 20:03] VITALS: BP 110/71; PULSE 83; RESP 17; TEMP 98.2; O2SAT 97
[2023-05-13] MEDS: OLANZapine 10 MG TABLET PO SCH (20:25)
[2023-05-14] MEDS: LamoTRIgine 25 MG TABLET PO SCH ×2 (08:34→20:13)
[2023-05-14] MEDS: ESCITALOPRAM OXALATE 10 MG TABLET PO SCH (08:34)
[2023-05-14 08:35] VITALS: BP 133/70; PULSE 86; RESP 18; TEMP 97.2; O2SAT 98
[2023-05-14] MEDS: LORazepam 2 MG TABLET PO PRN ×2 (08:35→19:42)
[2023-05-14] MEDS: BusPIRone HCL 15 MG TABLET PO SCH ×2 (08:35→20:13)
[2023-05-14] MEDS: CEPHALEXIN MONOHYDRATE 500 MG CAPSULE PO SCH ×3 (08:35→16:56)
[2023-05-14] MEDS: NYSTATIN 30 GM CREAM TP SCH ×2 (08:35→16:56)
[2023-05-14] MEDS: ACETAMINOPHEN 325 MG TABLET PO PRN (19:42)
[2023-05-14] MEDS: OLANZapine 10 MG TABLET PO SCH (20:13)
[2023-05-14 20:43] VITALS: BP 114/76; PULSE 96; RESP 17; TEMP 97.7; O2SAT 97
[2023-05-15 08:23] VITALS: BP 125/76; PULSE 89; RESP 18; TEMP 97.6; O2SAT 95
[2023-05-15] MEDS: CEPHALEXIN MONOHYDRATE 500 MG CAPSULE PO SCH ×3 (09:09→16:40)
[2023-05-15] MEDS: BusPIRone HCL 15 MG TABLET PO SCH ×2 (09:09→20:07)
[2023-05-15] MEDS: ESCITALOPRAM OXALATE 10 MG TABLET PO SCH (09:09)
[2023-05-15] MEDS: LamoTRIgine 25 MG TABLET PO SCH ×2 (09:09→20:07)
[2023-05-15] MEDS: NYSTATIN 30 GM CREAM TP SCH ×2 (09:10→16:40)
[2023-05-15] MEDS: OLANZapine 10 MG TABLET PO SCH (20:06)
[2023-05-15] MEDS: ZOLPIDEM TARTRATE 10 MG TABLET PO PRN (20:06)
[2023-05-16 00:31] VITALS: RESP 18; TEMP 98
[2023-05-16 08:35] VITALS: BP 123/76; PULSE 89; RESP 16; TEMP 97.8; O2SAT 97
[2023-05-16] MEDS: BusPIRone HCL 15 MG TABLET PO SCH ×2 (09:42→20:16)
[2023-05-16] MEDS: LamoTRIgine 25 MG TABLET PO SCH ×2 (09:42→20:16)
[2023-05-16] MEDS: NYSTATIN 30 GM CREAM TP SCH ×2 (09:43→17:20)
[2023-05-16] MEDS: ESCITALOPRAM OXALATE 10 MG TABLET PO SCH (09:43)
[2023-05-16] MEDS: CEPHALEXIN MONOHYDRATE 500 MG CAPSULE PO SCH ×3 (09:45→17:19)
[2023-05-16] MEDS: OLANZapine 10 MG TABLET PO SCH (20:16)
[2023-05-16] MEDS: ACETAMINOPHEN 325 MG TABLET PO PRN (20:17)
[2023-05-16] MEDS: ZOLPIDEM TARTRATE 10 MG TABLET PO PRN (20:22)
[2023-05-16 20:56] VITALS: BP 111/68; PULSE 86; RESP 18; TEMP 98; O2SAT 95
[2023-05-17 08:37] VITALS: BP 141/75; PULSE 76; RESP 16; TEMP 98.9; O2SAT 98
[2023-05-17] MEDS: NYSTATIN 30 GM CREAM TP SCH ×2 (09:00→16:21)
[2023-05-17] MEDS: BusPIRone HCL 15 MG TABLET PO SCH ×2 (09:11→21:14)
[2023-05-17] MEDS: CEPHALEXIN MONOHYDRATE 500 MG CAPSULE PO SCH ×3 (09:11→16:21)
[2023-05-17] MEDS: ESCITALOPRAM OXALATE 10 MG TABLET PO SCH (09:11)
[2023-05-17] MEDS: LamoTRIgine 25 MG TABLET PO SCH ×2 (09:11→21:14)
[2023-05-17] MEDS: ZOLPIDEM TARTRATE 10 MG TABLET PO PRN (21:14)
[2023-05-17] MEDS: OLANZapine 10 MG TABLET PO SCH (21:14)
[2023-05-17 21:22] VITALS: BP 132/69; PULSE 84; RESP 18; TEMP 98.1; O2SAT 97
[2023-05-17] MEDS: ACETAMINOPHEN 325 MG TABLET PO PRN (21:25)
[2023-05-18 08:39] VITALS: BP 126/79; PULSE 93; RESP 18; TEMP 98; O2SAT 99
[2023-05-18] MEDS: ESCITALOPRAM OXALATE 10 MG TABLET PO SCH (09:10)
[2023-05-18] MEDS: LamoTRIgine 25 MG TABLET PO SCH ×2 (09:10→20:12)
[2023-05-18] MEDS: CEPHALEXIN MONOHYDRATE 500 MG CAPSULE PO SCH ×3 (09:10→16:26)
[2023-05-18] MEDS: BusPIRone HCL 15 MG TABLET PO SCH ×2 (09:10→20:12)
[2023-05-18] MEDS: NYSTATIN 30 GM CREAM TP SCH ×2 (09:10→16:54)
[2023-05-18] MEDS: OLANZapine 10 MG TABLET PO SCH (20:12)
[2023-05-18 20:43] VITALS: BP 110/62; PULSE 75; RESP 19; TEMP 97.6; O2SAT 97
[2023-05-19] MEDS: CEPHALEXIN MONOHYDRATE 500 MG CAPSULE PO SCH ×3 (08:27→16:15)
[2023-05-19] MEDS: NYSTATIN 30 GM CREAM TP SCH ×2 (08:28→17:00)
[2023-05-19] MEDS: LamoTRIgine 25 MG TABLET PO SCH ×2 (08:28→20:11)
[2023-05-19] MEDS: BusPIRone HCL 15 MG TABLET PO SCH ×2 (08:28→20:11)
[2023-05-19] MEDS: ESCITALOPRAM OXALATE 10 MG TABLET PO SCH (08:28)
[2023-05-19 09:16] VITALS: BP 125/88; PULSE 82; RESP 17; TEMP 98.3; O2SAT 97
[2023-05-19] MEDS: OLANZapine 10 MG TABLET PO SCH (20:11)
[2023-05-19 21:28] VITALS: BP 113/69; PULSE 75; RESP 17; TEMP 98; O2SAT 96
[2023-05-20 08:35] VITALS: BP 121/79; PULSE 82; RESP 18; TEMP 98; O2SAT 97
[2023-05-20] MEDS: NYSTATIN 30 GM CREAM TP SCH ×2 (08:51→17:48)
[2023-05-20] MEDS: BusPIRone HCL 15 MG TABLET PO SCH ×2 (08:51→20:47)
[2023-05-20] MEDS: LamoTRIgine 25 MG TABLET PO SCH ×2 (08:52→20:47)
[2023-05-20] MEDS: CEPHALEXIN MONOHYDRATE 500 MG CAPSULE PO SCH ×3 (08:52→17:48)
[2023-05-20] MEDS: ESCITALOPRAM OXALATE 10 MG TABLET PO SCH (08:52)
[2023-05-20 20:42] VITALS: BP 120/64; PULSE 77; RESP 19; TEMP 97.7; O2SAT 99
[2023-05-20] MEDS: OLANZapine 10 MG TABLET PO SCH (20:46)
[2023-05-20] MEDS: ZOLPIDEM TARTRATE 10 MG TABLET PO PRN (22:37)
[2023-05-20] MEDS: LORazepam 2 MG TABLET PO PRN (22:37)
[2023-05-21] MEDS ORDERED: NYSTATIN 30 GM CREAM TP PRN (07:45)
[2023-05-21 08:31] VITALS: BP 116/72; PULSE 97; RESP 18; TEMP 97.9; O2SAT 99
[2023-05-21] MEDS: CEPHALEXIN MONOHYDRATE 500 MG CAPSULE PO SCH (09:46)
[2023-05-21] MEDS: LamoTRIgine 25 MG TABLET PO SCH ×2 (09:46→21:23)
[2023-05-21] MEDS: BusPIRone HCL 15 MG TABLET PO SCH ×2 (09:46→21:24)
[2023-05-21] MEDS: ESCITALOPRAM OXALATE 10 MG TABLET PO SCH (09:46)
[2023-05-21 21:14] VITALS: BP 121/72; PULSE 87; RESP 17; TEMP 97.6; O2SAT 98
[2023-05-21] MEDS: ZOLPIDEM TARTRATE 10 MG TABLET PO PRN (21:23)
[2023-05-21] MEDS: OLANZapine 10 MG TABLET PO SCH (21:24)
[2023-05-22] MEDS: BusPIRone HCL 15 MG TABLET PO SCH ×2 (09:10→20:16)
[2023-05-22] MEDS: ESCITALOPRAM OXALATE 10 MG TABLET PO SCH (09:10)
[2023-05-22] MEDS: LamoTRIgine 25 MG TABLET PO SCH ×2 (09:10→20:16)
[2023-05-22 09:11] VITALS: BP 103/68; PULSE 96; RESP 16; TEMP 97.9; O2SAT 97
[2023-05-22] MEDS: OLANZapine 10 MG TABLET PO SCH (20:16)
[2023-05-22 21:10] VITALS: BP 115/69; PULSE 86; RESP 18; TEMP 97.9; O2SAT 99
[2023-05-22] MEDS: ACETAMINOPHEN 325 MG TABLET PO PRN (22:50)
[2023-05-22] MEDS: ZOLPIDEM TARTRATE 10 MG TABLET PO PRN (22:50)
[2023-05-23] MEDS: ESCITALOPRAM OXALATE 10 MG TABLET PO SCH (08:16)
[2023-05-23] MEDS: BusPIRone HCL 15 MG TABLET PO SCH (08:16)
[2023-05-23] MEDS: LamoTRIgine 25 MG TABLET PO SCH (08:16)
[2023-05-23 08:31] VITALS: BP 126/80; PULSE 90; RESP 18; TEMP 97.7; O2SAT 97
[2023-05-23] MEDS ORDERED: BUSP15 PO (14:10)
[2023-05-23] MEDS ORDERED: ESCI-8 PO (14:10)
[2023-05-23] MEDS ORDERED: LAMO25TA36 PO (14:10)
[2023-05-23] MEDS ORDERED: OLAN10TA74 PO (14:10)
== END 2023-05-23 16:26 | disposition home or self-care (01) | DRG 750 ==
LOC: B3A 16:30
PROVIDERS: ADMIT Psychiatry & Neurology Child & Adolescent Psychiatry; ATTEND Psychiatry & Neurology Child & Adolescent Psychiatry
DX: F25.1 Schizoaffective disorder, depressive type (principal); R45.851 Suicidal ideations; Z91.148 Patient's other noncompliance with medication regimen for other reason; E78.5 Hyperlipidemia, unspecified; I10 Essential (primary) hypertension; R73.03 Prediabetes; Z20.822 Contact with and (suspected) exposure to COVID-19; Z79.899 Other long term (current) drug therapy
CPT/HCPCS: 80053; 80061; 80307; 81001; 83036; 84439; 84443; 84702; 85025; 86592; 86803; 87086; 87186; 87340; 90686

== ENCOUNTER 2023-12-11 17:23 | Inpatient (IN) | payer MEDICAID ==
[~2023-12-11] VITALS: Ht 162.6 cm; Wt 117.2 kg
[~2023-12-11 17:23] MED LIST changes: +ESCI-8 PO; +LAMO25TA36 PO; -OLAN10 PO; +OLAN10TA74 PO; -SERT-439 PO
[2023-12-11 18:21] LABS: GLUCOMETER DEV NAME(LOC) POC.BV; POC SARS-COV2 AG, FIA NEGATIVE (NEGATIVE)
[2023-12-11] MEDS ORDERED: HALOPERIDOL 5 MG TABLET PO PRN (19:00)
[2023-12-11] MEDS ORDERED: ZOLPIDEM TARTRATE 10 MG TABLET PO PRN (19:00)
[2023-12-11] MEDS ORDERED: LORazepam 2 MG TABLET PO PRN (19:00)
[2023-12-11 20:00] VITALS: BP 122/86; PULSE 86; RESP 18; TEMP 98.2; O2SAT 98
[2023-12-12 08:04] LABS: BASOPHILS % (AUTO) 0.5 % (0.0-2.0); EOSINOPHILS % (AUTO) 2.2 % (1.0-6.0); HEMATOCRIT 41.5 % (36-46); LYMPHOCYTES # (AUTO) 2.9 K/uL (1.0-4.8); LYMPHOCYTES % (AUTO) 29.8 % (22.0-44.0); MEAN CORPUSCULAR HEMOGLOBIN 27.9 pg (26.0-34.0); MEAN CORPUSCULAR HGB CONC 33.6 G/dL (31.0-37.0); MEAN CORPUSCULAR VOLUME 83 fL (80-100); MONOCYTES # (AUTO) 0.6 K/uL (0.1-1.0); MONOCYTES % (AUTO) 6.2 % (2.0-9.0); NEUTROPHILS % (AUTO) 61.3 % (40.0-70.0); PLATELET COUNT (AUTO) 305 K/uL (150-450); RED BLOOD CELL COUNT(AUTO) 5.01 MIL/uL (4.00-5.20); RED CELL DISTRIBUTION WIDTH 15.3 % (11.5-14.5); WHITE BLOOD COUNT (AUTO) 9.8 K/uL (4.5-11.0)
[2023-12-12 08:26] VITALS: BP 100/62; PULSE 75; RESP 16; TEMP 98.2; O2SAT 98
[2023-12-12] MEDS ORDERED: BACITRACIN 28 GM OINTMENT TP PRN (08:30)
[2023-12-12] MEDS ORDERED: IBUPROFEN 600 MG TABLET PO PRN (08:30)
[2023-12-12] MEDS ORDERED: CloNIDine HCL 0.1 MG TABLET PO PRN (08:30)
[2023-12-12] MEDS ORDERED: OMEPRAZOLE 20 MG CAPSULE PO PRN (08:30)
[2023-12-12] MEDS ORDERED: PETROLATUM,WHITE 28 GM JELLY TP PRN (08:30)
[2023-12-12] MEDS ORDERED: ONDANSETRON HCL 4 MG TABLET PO PRN (08:30)
[2023-12-12] MEDS ORDERED: ACETAMINOPHEN 325 MG TABLET PO PRN (08:30)
[2023-12-12] MEDS ORDERED: MAGNESIUM HYDROXIDE SUSPENSION 30 ML UDCUP PO PRN (08:30)
[2023-12-12] MEDS ORDERED: BENZOCAINE/MENTHOL LOZENGE PO PRN (08:30)
[2023-12-12] MEDS ORDERED: LOPERAMIDE HCL 2 MG CAPSULE PO PRN (08:30)
[2023-12-12] MEDS ORDERED: ALBUTEROL SULFATE HFA 90 MCG/PUFF 8 GM INHALER IH PRN (08:30)
[2023-12-12] MEDS ORDERED: DOCUSATE SODIUM 100 MG CAPSULE PO PRN (08:30)
[2023-12-12] MEDS ORDERED: MAG HYDROX/ALUMINUM HYD/SIMETH ES 30 ML SUSPENSION UDCUP PO PRN (08:30)
[2023-12-12 08:40] LABS: ALANINE AMINOTRANSFERASE 40 U/L (12-78); ALBUMIN 3.3 g/dL (3.4-5.0); ALKALINE PHOSPHATASE 51 U/L (46-116); ANION GAP 6 mmol/L (8-16); ASPARTATE AMINOTRANSFERASE 26 U/L (15-37); BILIRUBIN,TOTAL 0.4 mg/dL (0.1-1.0); CALCIUM, TOTAL 8.6 mg/dL (8.8-10.5); CARBON DIOXIDE 28 mmol/L (22-29); CHLORIDE 103 mmol/L (98-107); CHOL/HDL RATIO 3.2 (3.9-5.7); CHOLESTEROL 130 mg/dL (131-200); CREATININE 0.82 mg/dL (0.60-1.30); FREE T4 (FREE THYROXINE) 0.86 ng/dL (0.76-1.46); GLOMERULAR FILTR. RATE CALC > 60 mL/min (>60); GLUCOSE,RANDOM 110 mg/dL (70-110); HDL CHOLESTEROL 41 mg/dL (40-60); LDL CHOL (CALC.) 70 mg/dL (0-130); POTASSIUM 4.4 mmol/L (3.5-5.1); SODIUM SERUM 137 mmol/L (136-145); TOTAL PROTEIN, SERUM 7.3 g/dL (6.4-8.2); TRIGLYCERIDES 93 mg/dL (15-150); UREA NITROGEN, BLOOD 14 mg/dL (7-18)
[2023-12-12] MEDS: DIVALPROEX SODIUM 500 MG DR TABLET PO SCH (16:11)
[2023-12-12] MEDS: LITHIUM CARBONATE 300 MG CAPSULE PO SCH (16:12)
[2023-12-12 22:00] VITALS: BP 112/65; PULSE 82; RESP 18; TEMP 98; O2SAT 98
[2023-12-13 08:24] VITALS: BP 100/66; PULSE 80; RESP 16; TEMP 97.5; O2SAT 98
[2023-12-13 21:13] VITALS: BP 101/60; PULSE 85; RESP 18; TEMP 97.2
[2023-12-14 08:45] LABS: APPEARANCE,URINE HAZY (CLEAR); BILIRUBIN,URINE NEGATIVE (NEGATIVE); COLOR,URINE LIGHT YELLOW (YELLOW); GLUCOSE, URINE (UA) NEGATIVE (NEGATIVE); KETONES,URINE NEGATIVE (NEGATIVE); LEUKOCYTE ESTERASE ,URINE TRACE (NEGATIVE); NITRATE,URINE POSITIVE (NEGATIVE); OCCULT BLOOD,URINE SMALL (NEGATIVE); PROTEIN,URINE NEGATIVE (NEGATIVE); SPECIFIC GRAVITIY, URINE 1.014 (1.003-1.030); UROBILINOGEN,URINE <=1.0 mg/dL (<=1.0)
[2023-12-14 08:52] LABS: ALCOHOL, URINE DRUG SCREEN NEGATIVE (NEGATIVE); AMPHET/METH SCREEN,URINE NEGATIVE (NEGATIVE); BARBITURATE SCREEN, URINE NEGATIVE (NEGATIVE); BENZODIAZEPINES SCREEN,URINE NEGATIVE (NEGATIVE); CANNABINOID SCREEN,URINE NEGATIVE (NEGATIVE); COCAINE SCREEN,URINE NEGATIVE (NEGATIVE); METHADONE SCREEN, URINE NEGATIVE (NEGATIVE); OPIATE SCREEN,URINE NEGATIVE (NEGATIVE); PHENCYCLIDINE SCREEN,URINE NEGATIVE (NEGATIVE)
[2023-12-14 09:01] LABS: RBC,URINE 0-2 /HPF (0-2); SQUAMOUS EPITHELIAL CELL,UR Moderate /LPF (None Seen)
[2023-12-14 09:02] LABS: BACTERIA,URINE Many /HPF (None Seen)
[2023-12-14 11:19] VITALS: BP 106/60; PULSE 72; RESP 18; TEMP 98.3; O2SAT 98
[2023-12-14 20:38] VITALS: BP 127/73; PULSE 78; RESP 16; TEMP 97.1; O2SAT 99
[2023-12-15 08:57] VITALS: BP 104/61; PULSE 71; RESP 18; TEMP 98.1; O2SAT 99
[2023-12-15 21:07] VITALS: BP 113/65; PULSE 85; RESP 19; TEMP 98.1; O2SAT 97
[2023-12-16 08:13] VITALS: RESP 16
[2023-12-16 08:22] LABS: LITHIUM 0.34 mmol/L (0.60-1.20)
[2023-12-16] MEDS: NITROFURANTOIN MONOHYD/M-CRYST 100 MG CAPSULE [MACROBID] PO SCH (09:59)
[2023-12-16] MEDS ORDERED: LITH300C3 PO (16:22)
[2023-12-16] MEDS ORDERED: NITR-75 PO (16:22)
[2023-12-16] MEDS ORDERED: DIVA-112 PO (16:22)
[2023-12-16] MEDS: LITHIUM CARBONATE 300 MG CAPSULE PO SCH (16:23)
== END 2023-12-16 22:07 | disposition home or self-care (01) | DRG 750 ==
LOC: B3A 18:00
PROVIDERS: ADMIT Psychiatry & Neurology Psychiatry; ATTEND Psychiatry & Neurology Psychiatry
DX: F25.0 Schizoaffective disorder, bipolar type (principal); R45.851 Suicidal ideations; E66.9 Obesity, unspecified; G47.00 Insomnia, unspecified; F41.9 Anxiety disorder, unspecified; K59.00 Constipation, unspecified; F10.90 Alcohol use, unspecified, uncomplicated; Z20.822 Contact with and (suspected) exposure to COVID-19; Z68.41 Body mass index [BMI] 40.0-44.9, adult
CPT/HCPCS: 80053; 80061; 80164; 80178; 80307; 81001; 84436; 84439; 84443; 85025; 86592; 87086; 87186